=== PATIENT | female | born 1965 | race Caucasian/White ===

== ENCOUNTER 2016-10-03 10:22 | Emergency (ER) | payer MEDICARE, MEDICAID ==
[2016-10-03 11:16] LABS: BASOPHILS 0.5 % (0.0-2.0); EOSINOPHILS 3.4 % (0.0-6.0); EOSINOPHILS# 0.2 X 10^3uL (0.0-0.4); HEMATOCRIT 42.8 % (36.0-48.0); HEMOGLOBIN 14.5 g/dL (12.0-16.0); LYMPHOCYTES 22.7 % (20.0-40.0); LYMPHOCYTES# 1.7 X 10^3uL (0.8-3.8); MEAN CELL VOLUME 87.8 fL (80.0-100.0); MEAN CORPUS. HGB CONCENTRATION 33.8 g/dL (32.0-36.0); MEAN CORPUSCULAR HEMOGLOBIN 29.7 pg (29.0-35.0); MONOCYTES 7.9 % (2.0-10.0); MONOCYTES# 0.6 X 10^3uL (0.2-1.0); NEUTROPHILS 65.5 % (54.0-75.0); NEUTROPHILS# 4.8 X 10^3uL (2.6-6.7); PLATELET COUNT 211 X 10^3uL (130-440); RED BLOOD COUNT 4.88 X 10^6uL (4.20-6.10); RED CELL DISTRIBUTION WIDTH 15.7 % (11.5-14.5); WHITE BLOOD COUNT 7.3 X 10^3uL (3.9-10.7)
[2016-10-03 11:38] LABS: ALBUMIN 3.9 g/dL (3.5-5.0); ALKALINE PHOSPHATASE 103 U/L (38-126); ALT 26 U/L (9-52); AST 21 U/L (14-36); BILIRUBIN, DIRECT 0.1 mg/dL (0.0-0.4); BILIRUBIN, TOTAL 0.7 mg/dL (0.2-1.3); BLOOD UREA NITROGEN 4 mg/dL (7-17); CALCIUM 9.2 mg/dL (8.4-10.2); CHLORIDE 104 mmol/L (98-107); CREATININE 0.9 mg/dL (0.5-1.0); EST GLOMERULAR FILTRATION RATE > 60 mL/min; GLUCOSE 76 mg/dL (70-100); LIPASE 30 U/L (23-300); POTASSIUM 3.8 mmol/L (3.5-5.1); SODIUM 139 mmol/L (137-145); TOTAL PROTEIN 6.5 g/dL (6.3-8.2)
[2016-10-03 11:51] LABS: TROPONIN I < 0.012 ng/mL (0.00-0.034)
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
--- NOTE | 2016-10-03 12:25 | RADIOLOGY REPORT ---
A limited single portable view of the chest is compared with prior films dated . The heart, vessels and lungs are stable and unremarkable. No infiltrate, fluid or pneumothorax is seen. IMPRESSION: Stable, unremarkable limited single portable view of the chest. MTDD
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
== END 2016-10-03 12:39 | disposition home or self-care (01) ==
LOC: ER 10:22
DX: R41.82 Altered mental status, unspecified (principal); E86.0 Dehydration; E16.2 Hypoglycemia, unspecified; H53.8 Other visual disturbances; R61 Generalized hyperhidrosis; R42 Dizziness and giddiness; R53.1 Weakness; G89.29 Other chronic pain; Z72.0 Tobacco use; Z79.899 Other long term (current) drug therapy
CPT/HCPCS: 70450; 71010; 80048; 80076; 80178; 83690; 84484; 85025; 96360; 99284

== ENCOUNTER 2016-10-23 18:49 | Emergency (ER) | payer MEDICARE, MEDICAID ==
[2016-10-23] MEDS ORDERED: NALOXONE HCL 0.4 MG/ML VIAL ONE ×2 (19:08→21:20)
[2016-10-23 19:41] LABS: ALBUMIN 3.6 g/dL (3.5-5.0); ALKALINE PHOSPHATASE 99 U/L (38-126); ALT 26 U/L (9-52); AST 17 U/L (14-36); BILIRUBIN, DIRECT 0.1 mg/dL (0.0-0.4); BILIRUBIN, TOTAL 0.8 mg/dL (0.2-1.3); BLOOD UREA NITROGEN 6 mg/dL (7-17); CALCIUM 9.4 mg/dL (8.4-10.2); CHLORIDE 106 mmol/L (98-107); CREATININE 0.9 mg/dL (0.5-1.0); EST GLOMERULAR FILTRATION RATE > 60 mL/min; GLUCOSE 85 mg/dL (70-100); LIPASE 20 U/L (23-300); SODIUM 141 mmol/L (137-145); TOTAL PROTEIN 6.2 g/dL (6.3-8.2)
[2016-10-23 19:42] LABS: ETHYL ALCOHOL < 10 mg/dL (<10)
[2016-10-23 19:43] LABS: BASOPHILS 0.5 % (0.0-2.0); EOSINOPHILS 4.2 % (0.0-6.0); EOSINOPHILS# 0.3 X 10^3uL (0.0-0.4); HEMATOCRIT 44.7 % (36.0-48.0); HEMOGLOBIN 14.7 g/dL (12.0-16.0); LYMPHOCYTES 27.9 % (20.0-40.0); LYMPHOCYTES# 1.8 X 10^3uL (0.8-3.8); MEAN CELL VOLUME 89.2 fL (80.0-100.0); MEAN CORPUS. HGB CONCENTRATION 32.9 g/dL (32.0-36.0); MEAN CORPUSCULAR HEMOGLOBIN 29.4 pg (29.0-35.0); MEAN PLATELET VOLUME 10.5 fL (7.4-10.4); MONOCYTES 7.9 % (2.0-10.0); MONOCYTES# 0.5 X 10^3uL (0.2-1.0); NEUTROPHILS 59.5 % (54.0-75.0); NEUTROPHILS# 3.9 X 10^3uL (2.6-6.7); RED BLOOD COUNT 5.01 X 10^6uL (4.20-6.10); WHITE BLOOD COUNT 6.5 X 10^3uL (3.9-10.7)
[2016-10-23 19:53] LABS: PLATELET COUNT 218 X 10^3uL (130-440); RED CELL DISTRIBUTION WIDTH 16.2 % (11.5-14.5)
[2016-10-23 19:54] LABS: TROPONIN I < 0.012 ng/mL (0.00-0.034)
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
--- NOTE | 2016-10-24 08:38 | RADIOLOGY REPORT ---
A limited single portable view of the chest is compared with a prior film dated 10/03/2016. The heart and vessels are stable and unremarkable. The lung llanos are clear. No infiltrate, fluid or pneumothorax is seen. IMPRESSION: Stable, unremarkable limited single portable view of the chest. MTDD
== END 2016-10-23 23:31 | disposition home or self-care (01) ==
LOC: ER 18:49
DX: T40.601A Poisoning by unspecified narcotics, accidental (unintentional), initial encounter (principal); E86.0 Dehydration; R53.81 Other malaise; R25.1 Tremor, unspecified; R41.82 Altered mental status, unspecified; R42 Dizziness and giddiness; F41.9 Anxiety disorder, unspecified; F32.9 Major depressive disorder, single episode, unspecified; F11.20 Opioid dependence, uncomplicated; R61 Generalized hyperhidrosis; Z79.891 Long term (current) use of opiate analgesic; Z79.899 Other long term (current) drug therapy; Z99.89 Dependence on other enabling machines and devices; Z74.3 Need for continuous supervision
CPT/HCPCS: 36415; 71010; 80048; 80076; 80320; 83605; 83690; 84484; 85025; 85379; A0425; A0427

== ENCOUNTER 2016-12-26 11:18 | Emergency (ER) | payer MEDICARE, MEDICAID ==
--- NOTE | 2016-12-26 13:02 | RADIOLOGY REPORT ---
Four views of the left wrist demonstrate splinting material in place which obscures the fine bony detail. Comminuted intraarticular fracture of the distal radius is noted. There is approximately 5 mm of lateral and dorsal displacement along with 5 mm of dorsal impaction. Associated ulnar styloid process fracture is noted. Degenerative changes of the wrist are noted. IMPRESSION: Comminuted, angulated and displaced left Colles fracture as described. SAMRAD
--- NOTE | 2016-12-26 13:26 | RADIOLOGY REPORT ---
Two views of the left wrist at 1244 hours are compared with films earlier on the same date. Again noted is the distal radius fracture. There has been partial reduction and resplinting. No new abnormality is identified. IMPRESSION: Interval partial reduction and splinting of left distal radius fracture. MTDD
--- NOTE | 2016-12-26 14:16 | CT REPORT ---
HISTORY: Head injury, fall. COMPARISON: 10/03/2016 TECHNIQUE: Axial non-contrast images obtained from skull vertex through foramen magnum. Dose reduction technique was utilized. FINDINGS: There is no atrophy. There is no hemorrhage. There is no hydrocephalus. No mass lesion is identifi ed. Douglass white differentiation adequate, there is no infarction. No midline shift is identified. T he paranasal sinuses are clear. IMPRESSION: Normal head CT. There is some limitation of this examination due to patient motion during the examination. Final Electronic Signature: This report was electronically signed by Ovidio Nguyen MD, FACR on 2016 2:14 PM. [email or web address] / / [facility] [phone]
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
== END 2016-12-26 18:34 | disposition home or self-care (01) ==
LOC: ER 11:18
DX: S52.532A Colles' fracture of left radius, initial encounter for closed fracture (principal); R53.83 Other fatigue; W19.XXXA Unspecified fall, initial encounter; Y92.019 Unspecified place in single-family (private) house as the place of occurrence of the external cause; F11.20 Opioid dependence, uncomplicated; Z79.899 Other long term (current) drug therapy; Z79.891 Long term (current) use of opiate analgesic
CPT/HCPCS: 70450; 99284; A0425; A0427